=== PATIENT | female | born 1975 | race Caucasian/White ===

== ENCOUNTER 2024-03-03 08:27 | Inpatient (IN) | payer MEDICAID, SELFPAY ==
--- NOTE | 2024-03-03 08:50 | XR_ITS ---
Examination: Duplex scan of the lower extremity, unilateral left complete Date and time of exam: March 03, 2024 0928 hours INDICATIONS: Left leg swelling and pain beginning 3 weeks ago Technique: Duplex scan of the extremity veins using B-mode/grayscale imaging and Doppler spectral analysis and color flow Attention is directed to internal echogenicity, compression and augmentation involving these veins, color flow assessment, spectral analysis Findings: Major deep venous structures in the extremity demonstrate normal course and caliber. There is no evidence of deep vein thrombosis. Normal color flow and spectral analysis Impression: Negative for DVT..
--- NOTE | 2024-03-03 08:51 | PD.EDRME ---
Rapid Medical Screening Exam RME Arrival date/time: 03/03/24 08:27 48-year-old female with a history of hypertension, hyperlipidemia presents to the emergency room with a chief complaint of left lower extremity pain, swelling, discoloration x 3 weeks. Patient states she saw her primary care provider and was sent to the emergency room to rule out a DVT. Chief Complaint: General Adult/Misc Complain Vital signs: Vital Signs Temperature 97.6 F 03/03/24 08:56 Pulse Rate 80 03/03/24 08:56 Respiratory Rate 19 03/03/24 08:56 Blood Pressure 117/66 03/03/24 08:56 Pulse Oximetry (%) 97 03/03/24 08:56 Oxygen Delivery Method Room Air 03/03/24 08:56 Vital signs reviewed by provider: Yes
[2024-03-03 08:56] VITALS: BP 117/66; PULSE 80; RESP 19; TEMP 36.4; O2SAT 97; BMI 45.3
[2024-03-03 10:24] LABS: Basophils # (Auto) 0.1 Thou/mm3 (0.0-0.2); Basophils % (Auto) 2 % (0-2.5); Eosinophils # (Auto) 0.4 Thou/mm3 (0.0-0.5); Eosinophils % (Auto) 7 % (0-10); Hematocrit 32.8 % (36.0-46.0); Hemoglobin 10.4 g/dL (12.0-16.0); Immature Granulocytes % (Auto) 0 % (0-0); Immature Granulocytes Auto 0.02 Thou/mm3 (0.00-0.00); Lymphocytes # (Auto) 2.1 Thou/mm3 (1.0-4.8); Lymphocytes % (Auto) 31 % (10-50); Mean Corpuscular HGB Conc 31.7 g/dl (31.0-37.0); Mean Corpuscular Hemoglobin 26.5 pg (25.0-35.0); Mean Corpuscular Volume 84 fL (80-100); Monocytes # (Auto) 0.6 Thou/mm3 (0.0-0.8); Monocytes % (Auto) 9 % (0-12); Neutrophils # (Auto) 3.4 Thou/mm3 (1.8-7.7); Neutrophils % (Auto) 51 % (37-80); Nucleated Red Blood Cell % 0 /100 WBC (0); Platelet Count 282 Thou/mm3 (140-440); RDW Standard Deviation 45.5 fL (36.4-46.3); Red Blood Count 3.93 Miln/mm3 (4.00-5.20); White Blood Count 6.7 Thou/mm3 (3.6-11.0)
[2024-03-03 10:32] LABS: INR 1.1 (0.9-1.3); Partial Thromboplastin Time 29.5 Seconds (22.0-36.0); Prothrombin Time 11.6 Seconds (9.0-12.2)
[2024-03-03 10:36] LABS: Alanine Aminotransferase 11 U/L (10-49); Albumin, Serum 3.7 gm/dL (3.5-5.0); Albumin/Globulin Ratio 1.2 (1.2-2.2); Alkaline Phosphatase 83 U/L (46-116); Anion Gap 5 (7-16); Aspartate Amino Transferase 24 U/L (0-34); BUN/Creatinine Ratio 16 Ratio (12-20); Bilirubin,Total 0.5 mg/dL (0.3-1.2); Blood Urea Nitrogen 13 mg/dL (9-23); Calcium (Corrected) 9.2 mg/dL (8.5-10.1); Carbon Dioxide 30.5 mMol/L (20.0-31.0); Chloride 104 mMol/L (98-107); Creatinine (Component) 0.8 mg/dL (0.6-1.3); Estimated Creatinine Clearance 118.8 mL/min (>60); Globulin 3.2 gm/dL (2.3-3.5); Glucose 88 mg/dL (74-106); Osmolality,Calculated 276 (275-295); Potassium 4.4 mMol/L (3.4-5.1); Sodium 139 mMol/L (136-145); Total Protein 6.9 gm/dL (5.7-8.2); eGFR > 60 See Note
[2024-03-03 10:47] LABS: D-Dimer 515 ng/mL (<600)
[2024-03-03 11:19] VITALS: BP 134/86; PULSE 75; RESP 19; TEMP 36.8; O2SAT 100
--- NOTE | 2024-03-03 11:59 | EDNOTE_ITS ---
ED General RME/HPI General Chief complaint: General Adult/Misc Complain Stated complaint: LEFT LOWER LEG PAIN/SWELLING/REDNESS Arrival date/time: 03/03/24 08:27 RME / HPI RME / HPI narrative: 03/03/24 08:27 48-year-old female with a history of hypertension, hyperlipidemia presents to the emergency room with a chief complaint of left lower extremity pain, swelling, discoloration x 3 weeks. Patient states she saw her primary care provider and was sent to the emergency room to rule out a DVT. DR. GRISEL MUSTAFA ED EVALUATION 48 year old female with history of hypertension, fatty liver presents to the ED for evaluation of left lower extremity redness, swelling, and pain beginning 3 weeks ago and gradually worsening. States she has consulted her PCP who prescribed patient Clindamycin 2 weeks ago which she has taken without improvement. Followed up with PCP today and advised to come in today for evaluation of DVT. Additionally reports in the last week has had intermittent chest heaviness and my heart is fluttering . Denies any fevers, chills, cough, or shortness of breath. Related Data Home Medications ?Medication ?Instructions ?Recorded ?Confirmed buspirone 5 mg tablet 7.5 mg PO BID 06/04/23 06/04/23 omeprazole 20 mg capsule,delayed 20 mg PO BID 06/04/23 06/04/23 release semaglutide 0.25 mg or 0.5 mg (2 0.5 mg subcut QWEEK 06/04/23 06/04/23 mg/3 mL) subcutaneous pen injector (Ozempic) telmisartan 80 mg tablet 80 mg PO QDAY 06/04/23 06/04/23 vitamin B12 0.5 mg-folic acid 1 mg 1 tab PO QDAY 06/04/23 06/04/23 tablet Previous Rx's ?Medication ?Instructions ?Recorded docusate sodium 100 mg capsule 100 mg PO BID #20 caps 06/05/23 (Colace) hydrocodone 5 mg-acetaminophen 325 1 tab PO Q8H PRN pain (scale score 06/05/23 mg tablet 7-10) #10 tabs ibuprofen 600 mg tablet 600 mg PO Q8H PRN pain (scale 06/05/23 score 4-6) #15 tabs Allergies Allergy/AdvReac Type Severity Reaction Status Date / Time No Known Allergies Allergy Verified 06/05/23 09:47 Review of Systems Review of Systems Narrative Review of Systems: GEN: No fever, no chills, no weight loss EYES: No discharge, no visual changes, no pain HEENT: No ear pain, no congestion, no sore throat PULM: No shortness of breath, no cough, no congestion CV: No chest pain, no dyspnea on exertion, no palpitations GI: No nausea, no vomiting, no diarrhea, no pain, no constipation : No frequency, no urgency and no dysuria MUSC/SKEL: +LLE redness/swelling/pain, no back pain SKIN: No rash PSYCH: No hallucinations, no depression HEME/LYMPH: No easy bleeding or bruising tendencies NEURO: No weakness, no headache Past Medical History Past Medical History CARDIAC: Positive Hypercholesterolemia, Edema and Hypertension RESPIRATORY: Positive Sleep Apnea GASTROINTESTINAL: Positive Gastrointestinal Disorders (elevated liver enzymes), Hepatitis (C) and Obesity GENITOURINARY: Positive Genitourinary Disorders and Renal Disease MUSCULOSKELETAL: Positive Musculoskeletal Disorders ENDOCRINE: Positive Endocrine Disorders and Diabetes Mellitus Type 2 PSYCHO/SOCIAL: Positive Bipolar Disorder and Depression OTHER HISTORY: Positive Hospitalization (kidney failure 2 yrs ago), Shingles and Chicken Pox Family History FAMILY HISTORY: Positive Family Cardiac Disorders Surgical History SURGICAL: Positive Abdominal Surgery, Gastric Bypass Surgery and Tubal Ligation Social History SMOKING STATUS: Never smoker ED Exam Narrative Physical exam: GENERAL APPEARANCE: Well hydrated, well nourished, in no acute distress. VITALS: All vitals were reviewed and the pulse ox is 100% on room air which is normal according to my interpretation. HEENT: Normocephalic, atramatic, EOMI, EACs are patent. There is no bulge or retraction. Throat without erythema or exudate. Moist oromucosa. No jaundice NECK: Supple, no JVD or bruits. CARDIOVASCULAR: Heart regular without S3-S4 or murmur. No rubs or gallops. LUNGS/CHEST: Clear to auscultation bilaterally. No rales, rhonchi, or wheezing. Normal inspection. ABDOMEN: Soft, nontender, with normal bowel sounds. No pulsatile masses. No rebound, rigidity, or guarding. No incarcerated hernia. Normal inspection and palpation. EXTREMITIES: There is a band of cellulitis measuring about 20cm in width to the left lower hald of the left leg that is red hot and swollen. No clubbing or cyanosis. Intact CSM SKIN: Warm and dry without rashes. MUSCULOSKELETAL: Normal inspection. No gross deformity, full ROM all extremities NEURO: Alert and oriented x3. Cranial nerves II through XII grossly intact. There are no other motor or sensory deficits noted. PSYCHIATRIC: Normal mood and affect. No psychosis. Course Quality Measures none Orders Category Date Time Status EKG (ED ONLY) *Do not use* NOW Care 03/03/24 12:10 Completed EKG (ED Only) Stat Exams 03/03/24 12:10 Ordered US venous doppler LE LT Stat Exams 03/03/24 08:50 Completed CBC Stat Lab 03/03/24 09:48 Completed CMP [Comprehensive Metabolic Panel] Stat Lab 03/03/24 09:48 Completed D-Dimer Stat Lab 03/03/24 09:48 Completed PT [Prothrombin Time with INR] Stat Lab 03/03/24 09:48 Completed PTT [Partial Thromboplastin Time] Stat Lab 03/03/24 09:48 Completed Vancomycin Inj 1,000 mg Med 03/03/24 12:10 Active Sodium Chloride 0.9% 250 ml [Ns] 250 ml IV X1 Vital Signs Vital signs: Vital Signs Temperature 97.6 F 03/03/24 08:56 Pulse Rate 80 03/03/24 08:56 Respiratory Rate 19 03/03/24 08:56 Blood Pressure 117/66 03/03/24 08:56 Pulse Oximetry (%) 97 03/03/24 08:56 Oxygen Delivery Method Room Air 03/03/24 08:56 [facility] Patient data External records reviewed:: [facility] previous records (I reviewed ED visit on 06/05/2023) Clinical information provided by:: patient Social determinants that could affect healthcare access:: none Patient has the following chronic illnesses:: Hypertension How is presenting disease/condition affected by chronic disease/condition?: u neffected by Evaluation data The following diagnostics were reviewed and interpreted by me:: lab results and radiology exam(s) Lab and/or radiology exams considered but not ordered:: None Interpretation Summary: Ordering Physician: Rubio Tellez Date of Service: 03/03/24 Procedure(s): US venous doppler LE LT Accession Number(s): [id number] cc: Rubio Tellez; Wander Vyas MD; Vince Jensen MD~ Examination: Duplex scan of the lower extremity, unilateral left complete Date and time of exam: March 03, 2024 0928 hours INDICATIONS: Left leg swelling and pain beginning 3 weeks ago Technique: Duplex scan of the extremity veins using B-mode/grayscale imaging and Doppler spectral analysis and color flow Attention is directed to internal echogenicity, compression and augmentation involving these veins, color flow assessment, spectral analysis Findings: Major deep venous structures in the extremity demonstrate normal course and caliber. There is no evidence of deep vein thrombosis. Normal color flow and spectral analysis Impression: Negative for DVT.. Dictated By: Vince Jensen MD Signed By: <Electronically signed by Vince Jensen MD in OV> 03/03/24 0952 Medications Medications considered but not ordered:: None Medication administrations:: Medication Administration History Vancomycin HCl 1,000 mg/ (Sodium Chloride) 250 mls @ 150 mls/hr IV X1 ONE Stop: 03/03/24 13:49 See above Consultations Consultation(s) initiated? (list below): Yes Consultation #1 (Physician, Specialty, Details): I spoke with hospitalist Dr. Camacho as noted above. Diagnosis Differential Diagnosis ED Complaint MDM: Cellulitis, sepsis, DVT Most likely diagnosis given after review of the tests above:: Cellulitis Admission Indicated Admission indicated?: indicated Explain why admission is indicated or not indicated:: Failed outpatient treatment. Admission Request Was there a request for admission?: Yes Admission Attestation Admission request attestation: Discussed case with [] from Hospitalist service regarding admission. Discussed patients ED course, exam findings, labs, and radiology results. The Hospitalist [agrees,declines] to accept the patient for admission. Disposition Plan Disposition Plan: Admit Medical Decision Making MDM Narrative MDM Narrative: CBC unremarkable. CMP negative. D-dimer negative. PT and PTT are negative. Ultrasound Doppler of the left extremity lower was read by Dr. Vinec Jensen is negative for DVT. According to the patient she has been having this cellulitis for a month and she has been taking clindamycin for the last 10 days without any improvement. In fact the cellulitis is getting worse. Prompted her to come in. On exam she does have red hot swollen cellulitis in the left lower extremity. No abscess. In the emergency department I am giving the patient 1 g of vancomycin IV. Twelve-lead EKG at 12:54 PM interpreted by me: Normal sinus rhythm. Heart rate of 70. Normal axis. No ST elevation or depression. No PVC. No STEMI. Regular rate and rhythm. Old Q waves noted in leads III and V1 and V2. 12:40 PM, I spoke to discussed with Dr. Camacho, hospitalist on-call. He agreed to admit the patient for further evaluation and treatment. Thank very much Differential Diagnosis Differential Diagnosis: Cellulitis, sepsis, DVT Lab Data 03/03/24 09:48 03/03/24 09:48 Labs: Lab Results 03/03/24 Range/Units 09:48 WBC 6.7 (3.6-11.0) Thou/mm3 RBC 3.93 L (4.00-5.20) Miln/mm3 Hgb 10.4 L (12.0-16.0) g/dL Hct 32.8 L (36.0-46.0) % MCV 84 (80-100) fL MCH 26.5 (25.0-35.0) pg MCHC 31.7 (31.0-37.0) g/dl RDW Std Deviation 45.5 (36.4-46.3) fL Plt Count 282 (140-440) Thou/mm3 Neut % (Auto) 51 (37-80) % Lymph % (Auto) 31 (10-50) % [place] % (Auto) 9 (0-12) % Eos % (Auto) 7 (0-10) % Baso % (Auto) 2 (0-2.5) % Neut # (Auto) 3.4 (1.8-7.7) Thou/mm3 Lymph # (Auto) 2.1 (1.0-4.8) Thou/mm3 [place] # (Auto) 0.6 (0.0-0.8) Thou/mm3 Eos # (Auto) 0.4 (0.0-0.5) Thou/mm3 Baso # (Auto) 0.1 (0.0-0.2) Thou/mm3 Immature Gran # (Auto) 0.02 H (0.00-0.00) Thou/mm3 Absolute Nucleated RBC 0.00 (0.00-0.00) Thou/mm3 Immature Gran % 0 (0-0) % Nucleated RBC % 0 (0) /100 WBC PT 11.6 (9.0-12.2) Seconds INR 1.1 (0.9-1.3) APTT 29.5 (22.0-36.0) Seconds D-Dimer 515 (<600) ng/mL Sodium 139 (136-145) mMol/L Potassium 4.4 (3.4-5.1) mMol/L Chloride 104 (98-107) mMol/L Carbon Dioxide 30.5 (20.0-31.0) mMol/L Anion Gap 5 L (7-16) BUN 13 (9-23) mg/dL Creatinine 0.8 (0.6-1.3) mg/dL Estim Creat Clear Calc 118.8 (>60) mL/min eGFR > 60 (60 - ) See Note BUN/Creatinine Ratio 16 (12-20) Ratio Glucose 88 (74-106) mg/dL Calculated Osmolality 276 (275-295) Calcium 9.0 (8.3-10.6) mg/dL Corrected Calcium 9.2 (8.5-10.1) mg/dL Total Bilirubin 0.5 (0.3-1.2) mg/dL AST 24 (0-34) U/L ALT 11 (10-49) U/L Alkaline Phosphatase 83 (46-116) U/L Total Protein 6.9 (5.7-8.2) gm/dL Albumin 3.7 (3.5-5.0) gm/dL Globulin 3.2 (2.3-3.5) gm/dL Albumin/Globulin Ratio 1.2 (1.2-2.2) Discharge Plan Plan Patient Disposition: Admit Acute Care w/in Hospital Disposition Comment: Stable for admit Prescriptions/Referrals Prescriptions/Med Rec: No Action telmisartan 80 mg Tablet 80 mg PO QDAY omeprazole 20 mg Capsule,Delayed Release(Dr/Ec) 20 mg PO BID vitamin B52-ruuru acid 0.5-1 mg Tablet 1 tab PO QDAY Ozempic 0.25 mg or 0.5 mg (2 mg/3 mL) Pen Injector 0.5 mg SUBCUT QWEEK buspirone 5 mg Tablet 7.5 mg PO BID docusate sodium [Colace] 100 mg capsule 100 mg PO BID Qty: 20 0RF ibuprofen 600 mg tablet 600 mg PO Q8H PRN (Reason: pain (scale score 4-6)) Qty: 15 0RF hydrocodone-acetaminophen 5-325 mg tablet 1 tab PO Q8H MDD 3 PRN (Reason: pain (scale score 7-10)) Qty: 10 0RF Referrals: Wander Vyas MD [Primary Care Provider] - In 1 week Problem List Clinical Impression: Cellulitis Patient/Caregiver Discharge Instructions Print Language: Guamanian Stand Alone Forms: Maria D Award Info., Patient Portal Info Letter
[2024-03-03] MEDS: Vancomycin Inj 1,000 MG in SODIUM CHLORIDE 0.9% 250 ML 250 ML 150 MG IV (13:31)
[2024-03-03 13:46] VITALS: BP 139/83; PULSE 68; RESP 18; TEMP 36.9; O2SAT 98
--- NOTE | 2024-03-03 15:31 | ESHP_ITS ---
<Statement entered by Lala Medina MD - 03/03/24 19:13> In Brief: 48-year-old female admitted for cellulitis to outpatient clindamycin therapy, IV antibiotics will follow cultures wound care in place. Pending troponin. If elevated will consider echo. He might need outpatient cardiology follow-up. her chest pain is non specific . I discussed with and supervised my co-resident involved in the care of this patient. I agree with the assessment and plan as documented above. Lala Medina,PGY-3 Disclaimer: Despite multiple revisions, due to the dictation software being used, the document below may not be free of grammatical errors including phonetic/typographic errors. However, this does not deter from our commitment to providing health care in the patient's best interest in mind. Documentation for date of: 03/03/24 HPI History of Present Illness History of present illness: This is a pleasant 48-year-old female PMHx of HTN, HLD, obesity, METH user, presenting to ED with bilateral lower extremity pain. She had previously seen her PCP who prescribed CLINDAMYCIN for bilateral cellulitis. Patient was on ANTIBIOTICS for a week, without improvement in symptoms. Also admits to a single episode of chest pain and pressure that occurred once this week, not related to exertion, lasting about 30 minutes, resolved spontaneously. Physical exam shows bilateral lower extremity tenderness to palpation, warmth, erythema over distal foot. Denies headaches, fever, fall, trauma or injury, fever, chills, active chest pain, shortness of breath, cough, GI symptoms including pain or N/V/D/C, urinary symptoms, abnormal bleed, active drug use, alcohol use, or tobacco use. Patient admitted for bilateral lower extremity cellulitis. ED COURSE: Vital stable with T97.6, BP 117/66, HR 80, RR 19, satting 97% on room air. Hgb 10.4 (baseline around 12), no leukocytosis, PLT 282. CMP without significant abnormalities. U tox positive for METHAMPHETAMINE. Venous Doppler of bilateral extremity negative for DVT. PMHx: HTN, HLD, obesity, METH use. PSHx: Gastric sleeve bypass. MEDS: Pending med rec.per chart review, patient on TELMISARTAN 40 mg, WEGOVY 2.5 mg, MEDROXYPROGESTERONE 10 mg daily, HYDROCHLOROTHIAZIDE 25 mg daily. ALLERGIES: No known allergies. SH: Denies drug, alcohol or tobacco use. Exam Vital Signs Temp Pulse Resp BP Pulse Ox O2 Del Method 98.5 F 68 18 139/83 H 98 Room Air 03/03/24 13:46 03/03/24 13:46 03/03/24 13:46 03/03/24 13:46 03/03/24 13:46 03/03/24 13:46 Narrative Exam GENERAL * Normal-appearing middle-aged woman, obese, no apparent distress HEENT * NCAT.?KASSI. Oral mucosa is moist. Patent Nares NECK * Supple, nontender, no thyromegaly, no meningismus, no JVD, no step offs CHEST * RRR, no m/g/r * CTAB, no w/r/r. Symmetrical chest rise. No intercostal subcostal retraction * Atraumatic, nontender, no crepitus, symmetrical expansion. ABDOMEN * Soft, flat, nontender. No guarding/rebound tenderness/masses. * Bowel sounds presents EXTREMITIES * Bilateral lower extremity with erythema and tenderness over anterior distal artis. * No edema/cyanosis.? SKIN * Warm and dry, no jaundice/rashes. NEUROMUSCULAR * No lumbar or midline, no CVA, no paraspinal muscle spasm or tenderness. * Moves all 4 extremities well, with full ROM and good CSM. * CONNELL x4, CN II-XII grossly intact. * No focal neurologic deficits. PSYCHIATRY * Normal mood and affect, cooperative, no SI or HI or hallucinations. Results: Labs 03/04/24 05:56 03/04/24 05:56 Labs: Short CBC 03/03/24 Range/Units 09:48 WBC 6.7 (3.6-11.0) Thou/mm3 Hgb 10.4 L (12.0-16.0) g/dL Hct 32.8 L (36.0-46.0) % Plt Count 282 (140-440) Thou/mm3 BMP 03/03/24 09:48 Sodium 139 Potassium 4.4 Chloride 104 Carbon Dioxide 30.5 BUN 13 Creatinine 0.8 Glucose 88 Calcium 9.0 Liver Function 03/03/24 Range/Units 09:48 Total Bilirubin 0.5 (0.3-1.2) mg/dL AST 24 (0-34) U/L ALT 11 (10-49) U/L Alkaline Phosphatase 83 (46-116) U/L Albumin 3.7 (3.5-5.0) gm/dL Quality Measures Quality Measures none Medications Home Medications and Allergies Home Medications ?Medication ?Instructions ?Recorded ?Confirmed ?Type buspirone 5 mg tablet 7.5 mg PO BID 06/04/23 03/04/24 History omeprazole 20 mg capsule,delayed 20 mg PO BID 06/04/23 06/04/23 History release semaglutide 0.25 mg or 0.5 mg (2 0.5 mg subcut QWEEK 06/04/23 03/04/24 History mg/3 mL) subcutaneous pen injector (ClassifEye) telmisartan 80 mg tablet 40 mg PO QDAY 06/04/23 03/04/24 History vitamin B12 0.5 mg-folic acid 1 mg 1 tab PO QDAY 06/04/23 03/04/24 History tablet Allergies Allergy/AdvReac Type Severity Reaction Status Date / Time No Known Allergies Allergy Verified 06/05/23 09:47 Visit Medications Acetaminophen (Acetaminophen 325 Mg Tablet) 650 mg PO Q6H PRN PRN Reason: PAIN SCALE 1-3 (mild Stop: 04/02/24 15:01 Acetaminophen (Acetaminophen 325 Mg Tablet) 650 mg PO Q6H PRN PRN Reason: Fever >100 Stop: 04/02/24 15:01 Hydrocodone Bitart/Acetaminophen (Hydrocodone/Apap 10/325 Tab) 1 tab PO Q4HR PRN PRN Reason: PAIN SCALE 7-10 (Severe Stop: 03/08/24 15:01 Ondansetron HCl (Ondansetron Inj 2 Mg/Ml Inj 2 Ml) 4 mg IV Q6H PRN; Protocol PRN Reason: NAUSEA OR VOMITING Stop: 04/02/24 15:01 Oxycodone/Acetaminophen (Oxycodone/Apap 5/325 Tablet) 1 tab PO Q6H PRN PRN Reason: PAIN SCALE 4-6 (Moderate Stop: 03/08/24 15:01 Discontinued Medications Vancomycin HCl 1,000 mg/ (Sodium Chloride) 250 mls @ 150 mls/hr IV X1 ONE Stop: 03/03/24 13:49 Last Admin: 03/03/24 13:31 Dose: 150 mls/hr Assessment & Plan Plan In summary: 48-year-old female PMHx of HTN, HLD, obesity, METH use, admitted for bilateral lower extremity cellulitis after failing outpatient CLINDAMYCIN. Patient started on IV ANTIBIOTICS. Pending blood culture. In addition, patient admitted to not recurrent of chest pain and pressure lasting about 30 minutes. EKG was normal. Will follow-up with troponin. Bilateral lower extremity cellulitis Morbid obesity Hx of gastric sleeve bypass Presenting with worsening cellulitis lower extremity after failing 1 week of CLINDAMYCIN outpatient. No history of diabetes. Limited BMI and active drug use, high risk for infection. She had gastric sleeve bypass done recently, lost about 100 lbs, now on WEGOVY. Currently afebrile, no leukocytosis. No signs of compartment syndrome. No ulcers or skin tears bilaterally. Pulses intact bilaterally. No history of diabetes. GLUCOSE 88, A1c 4.7 from 08/2023. ? Started VANCOMYCIN pharmacy dose (03/03 to [present]) ? Started CEFAZOLIN 2 g Q8H (03/03 to [present]) ? Pain control ? Wound care Chest pain, nonspecified Reports a single nonrecurring episode of chest pressure lasting about 30 minutes. EKG in ED, no acute ST changes. ? Pending troponin HTN, HLD History of above. Pending med rec's. Patient states she is on HYDROCHLOROTHIAZIDE and TELMISARTAN. Currently normotensive. ? Consider restarting ANTIHYPERTENSIVE as indicated. ? Daily vitals Active METH use Admits to history of METH use, stated she is not currently using METH. U tox positive for METH AMPHETAMINE. ? Advised against METH use Health maintenance Diet: Regular diet GI prophylaxis: Not indicated DVT prophylaxis: HEPARIN subcu Antibiotics: CEFAZOLIN, VANCOMYCIN CODE STATUS: Full code Disposition: Pending improvement in cellulitis. Patient case was discussed with attending, Gabe Camacho MD and senior residents Dr. Medina and Dr. Titus. Jaye Messina DO PGYI Attending Provider Attestation/Addendum I reviewed labs, imaging, EKG, home medications and prior available records. Face to face evaluation was performed by me. I have personally examined the patient and discussed assessment and plan with the IM team. I reviewed the resident note and agree with the plan with exceptions as below. Left lower extremity cellulitis History of methamphetamine use Morbid obesity BMI 45.4 Fatty liver disease Failed outpatient treatment. Started vancomycin/cefazolin Trend WBC Elevation of left lower extremity Avoid methamphetamine Weight management
[2024-03-03] MEDS: ceFAZolin/D5W 2 GM IV 2 GM/100 ML BAG IV ×2 (16:16→21:07)
[2024-03-03 16:27] LABS: Troponin I < 0.020 ng/mL (0.0-0.045)
[2024-03-03 17:00] VITALS: BP 156/76; PULSE 72; RESP 18; TEMP 36.9; O2SAT 98
[2024-03-03 17:18] VITALS: BMI 45.3
[2024-03-03] MEDS: HYDROcodone/APAP 10/325 TAB PO (19:33)
[2024-03-03 20:00] VITALS: BP 137/85; PULSE 78; RESP 18; TEMP 36.3; O2SAT 99
[2024-03-03] MEDS: HEPARIN SOD INJ 5000 UNIT/ML VIAL SC (21:06)
[2024-03-03] MEDS: VANCOMYCIN/NS 1 GM IVPB 200 ML IV (21:07)
[2024-03-04] VITALS (8 sets, daily range): BP systolic 111–136; BP diastolic 55–78; PULSE 76–88; RESP 17–20; TEMP 36.2–36.6; O2SAT 94–100
[2024-03-04] MEDS: VANCOMYCIN/NS 1 GM IVPB 200 ML IV ×3 (05:05→22:28)
[2024-03-04] MEDS: HEPARIN SOD INJ 5000 UNIT/ML VIAL SC ×3 (05:08→21:10)
[2024-03-04] MEDS: ceFAZolin/D5W 2 GM IV 2 GM/100 ML BAG IV ×3 (05:11→21:09)
[2024-03-04 06:34] LABS: Basophils # (Auto) 0.1 Thou/mm3 (0.0-0.2); Basophils % (Auto) 1 % (0-2.5); Eosinophils # (Auto) 0.3 Thou/mm3 (0.0-0.5); Eosinophils % (Auto) 6 % (0-10); Hematocrit 31.6 % (36.0-46.0); Hemoglobin 9.9 g/dL (12.0-16.0); Immature Granulocytes % (Auto) 0 % (0-0); Immature Granulocytes Auto 0.02 Thou/mm3 (0.00-0.00); Lymphocytes # (Auto) 2.6 Thou/mm3 (1.0-4.8); Lymphocytes % (Auto) 43 % (10-50); Mean Corpuscular HGB Conc 31.3 g/dl (31.0-37.0); Mean Corpuscular Hemoglobin 26.3 pg (25.0-35.0); Mean Corpuscular Volume 84 fL (80-100); Monocytes # (Auto) 0.5 Thou/mm3 (0.0-0.8); Monocytes % (Auto) 8 % (0-12); Neutrophils # (Auto) 2.5 Thou/mm3 (1.8-7.7); Neutrophils % (Auto) 42 % (37-80); Nucleated Red Blood Cell % 0 /100 WBC (0); Platelet Count 262 Thou/mm3 (140-440); Red Blood Count 3.76 Miln/mm3 (4.00-5.20); White Blood Count 5.9 Thou/mm3 (3.6-11.0)
[2024-03-04] MEDS: ACETAMINOPHEN 325 MG TABLET 650 MG PO ×3 (07:10→21:47)
[2024-03-04 07:51] LABS: Alanine Aminotransferase 13 U/L (10-49); Albumin, Serum 3.6 gm/dL (3.5-5.0); Albumin/Globulin Ratio 1.3 (1.2-2.2); Alkaline Phosphatase 76 U/L (46-116); Anion Gap 7 (7-16); Aspartate Amino Transferase < 10 U/L (0-34); BUN/Creatinine Ratio 16 Ratio (12-20); Bilirubin,Total 0.4 mg/dL (0.3-1.2); Blood Urea Nitrogen 13 mg/dL (9-23); Calcium 8.7 mg/dL (8.3-10.6); Carbon Dioxide 29.5 mMol/L (20.0-31.0); Chloride 103 mMol/L (98-107); Creatinine (Component) 0.8 mg/dL (0.6-1.3); Estimated Creatinine Clearance 118.8 mL/min (>60); Globulin 2.8 gm/dL (2.3-3.5); Glucose 81 mg/dL (74-106); Osmolality,Calculated 276 (275-295); Phosphorous 3.8 mg/dL (2.4-5.1); Sodium 139 mMol/L (136-145); Total Protein 6.4 gm/dL (5.7-8.2); eGFR > 60 See Note
[2024-03-04] MEDS: FERROUS SULF 325 MG TABLET PO (09:45)
[2024-03-04] MEDS: ONDANSETRON ODT 4 MG TABRAP PO (09:47)
--- NOTE | 2024-03-04 10:48 | ESPR_ITS ---
<Statement entered by Lala Medina MD - 03/04/24 17:15> Patient was examined bedside this morning, right leg cellulitis more improved. Will continue IV antibiotic. Pending echo I discussed with and supervised my co-resident involved in the care of this patient. I agree with the assessment and plan as documented above. Lala Medina,PGY-3 Disclaimer: Despite multiple revisions, due to the dictation software being used, the document below may not be free of grammatical errors including phonetic/typographic errors. However, this does not deter from our commitment to providing health care in the patient's best interest in mind. Documentation for date of: 03/04/24 Subjective Subjective Interval history: No overnight events. Doing well today, pain controlled. Feels nauseous today, we started ZOFRAN. Denies fever, chills, headaches, chest pain, sob, cough, GI or urinary symptoms. Exam Vital Signs Temp Pulse Resp BP Pulse Ox O2 Del Method 97.3 F 78 18 136/55 H 95 Room Air 03/04/24 08:00 03/04/24 08:00 03/04/24 08:00 03/04/24 08:00 03/04/24 08:00 03/04/24 08:00 Narrative Exam GENERAL * Normal-appearing middle-aged woman, obese, no apparent distress HEENT * NCAT.?KASSI. Oral mucosa is moist. Patent Nares NECK * Supple, nontender, no thyromegaly, no meningismus, no JVD, no step offs CHEST * RRR, no m/g/r * CTAB, no w/r/r. Symmetrical chest rise. No intercostal subcostal retraction * Atraumatic, nontender, no crepitus, symmetrical expansion. ABDOMEN * Soft, flat, nontender. No guarding/rebound tenderness/masses. * Bowel sounds presents EXTREMITIES * Imporving bilateral lower extremity with erythema and tenderness over anterior distal artis. * No edema/cyanosis.? SKIN * Warm and dry, no jaundice/rashes. NEUROMUSCULAR * No lumbar or midline, no CVA, no paraspinal muscle spasm or tenderness. * Moves all 4 extremities well, with full ROM and good CSM. * CONNELL x4, CN II-XII grossly intact. * No focal neurologic deficits. PSYCHIATRY * Normal mood and affect, cooperative, no SI or HI or hallucinations. Objective Labs 03/04/24 05:56 03/04/24 05:56 Labs: Laboratory Results - last 24 hr 03/03/24 03/04/24 15:45 05:56 WBC 5.9 RBC 3.76 L Hgb 9.9 L Hct 31.6 L MCV 84 MCH 26.3 MCHC 31.3 RDW Std Deviation 46.0 Plt Count 262 Neut % (Auto) 42 Lymph % (Auto) 43 [place] % (Auto) 8 Eos % (Auto) 6 Baso % (Auto) 1 Neut # (Auto) 2.5 Lymph # (Auto) 2.6 [place] # (Auto) 0.5 Eos # (Auto) 0.3 Baso # (Auto) 0.1 Immature Gran # (Auto) 0.02 H Absolute Nucleated RBC 0.00 Immature Gran % 0 Nucleated RBC % 0 Sodium 139 Potassium 4.0 Chloride 103 Carbon Dioxide 29.5 Anion Gap 7 BUN 13 Creatinine 0.8 Estim Creat Clear Calc 118.8 eGFR > 60 BUN/Creatinine Ratio 16 Glucose 81 Calculated Osmolality 276 Calcium 8.7 Corrected Calcium 9.0 Phosphorus 3.8 Magnesium 2.0 Total Bilirubin 0.4 AST < 10 ALT 13 Alkaline Phosphatase 76 Troponin I < 0.020 Total Protein 6.4 Albumin 3.6 Globulin 2.8 Albumin/Globulin Ratio 1.3 Quality Measures Quality Measures none Assessment & Plan Assessment Current Active Medications: Generic Name Dose Route Start Last Admin Trade Name Freq PRN Reason Stop Dose Admin Acetaminophen 650 mg 03/03/24 15:02 03/04/24 07:10 Acetaminophen 325 Mg Tablet PO 04/02/24 15:01 650 mg Q6H PRN Administration PAIN SCALE 1-3 (mild Acetaminophen 650 mg 03/03/24 15:02 Acetaminophen 325 Mg Tablet PO 04/02/24 15:01 Q6H PRN Fever >100 Hydrocodone Bitart/Acetaminophen 1 tab 03/03/24 15:02 03/03/24 19:33 Hydrocodone/Apap 10/325 Tab PO 03/08/24 15:01 1 tab Q4HR PRN Administration PAIN SCALE 7-10 (Severe Ferrous Sulfate 325 mg 03/04/24 09:00 03/04/24 09:45 Ferrous Sulf 325 Mg Tablet PO 04/03/24 08:59 325 mg QOD PHILIPP Administration Heparin Sodium (Porcine) 5,000 unit 03/03/24 22:00 03/04/24 05:08 Heparin Sod Inj 5000 Unit/Ml Vial SC 03/17/24 21:59 5,000 unit Q8HR PHILIPP Administration Cefazolin Sodium 2 gm in 100 mls @ 100 mls/hr 03/03/24 15:47 03/04/24 05:11 Ancef 2gm Ivpb IV 03/10/24 15:46 100 mls/hr Q8HR PHILIPP Administration Vancomycin/Sodium Chloride 200 mls @ 120 mls/hr 03/03/24 22:00 03/04/24 05:05 Vancomycin/Ns 1 Gm Ivpb IV 03/10/24 21:59 120 mls/hr TID PHILIPP Administration Ondansetron HCl 4 mg 03/04/24 08:41 Ondansetron Odt 4 Mg Tabrap PO 04/03/24 08:40 Q6HR PRN NAUSEA OR VOMITING Protocol Oxycodone/Acetaminophen 1 tab 03/03/24 15:02 Oxycodone/Apap 5/325 Tablet PO 03/08/24 15:01 Q6H PRN PAIN SCALE 4-6 (Moderate Pharmacy Consult 1 each 03/04/24 09:00 Vancomycin Pharmacy To Dose 1 Each Each IV 04/03/24 08:59 QDAY PRN CONSULT Plan In summary: 48-year-old female PMHx of HTN, HLD, obesity, METH use, admitted for bilateral lower extremity cellulitis after failing outpatient CLINDAMYCIN. Continued on IV ANTIBIOTICS. Pending blood culture. In addition, patient admitted to not recurrent of chest pain and pressure lasting about 30 minutes. EKG and trops negative. Pending ECHO. Bilateral lower extremity cellulitis Morbid obesity Hx of gastric sleeve bypass Presenting with worsening cellulitis lower extremity after failing 1 week of CLINDAMYCIN outpatient. No history of diabetes. Limited BMI and active drug use, high risk for infection. She had gastric sleeve bypass done recently, lost about 100 lbs, now on WEGOVY. Currently afebrile, no leukocytosis. No signs of compartment syndrome. No ulcers or skin tears bilaterally. Pulses intact bilaterally. No history of diabetes. GLUCOSE 88, A1c 4.7 from 08/2023. ? Started VANCOMYCIN pharmacy dose (03/03 to [present]) ? Started CEFAZOLIN 2 g Q8H (03/03 to [present]) ? Pain control ? Wound care Chest pain, nonspecified Reports a single nonrecurring episode of chest pressure lasting about 30 minutes. EKG in ED, no acute ST changes. Troponin normal. ? Pending ECHO. HTN, HLD History of above. Pending med rec's. Patient states she is on HYDROCHLOROTHIAZIDE and TELMISARTAN. Currently normotensive. ? Consider restarting ANTIHYPERTENSIVE as indicated. ? Daily vitals Active METH use Admits to history of METH use, stated she is not currently using METH. U tox positive for METH AMPHETAMINE. ? Advised against METH use Health maintenance Diet: Regular diet GI prophylaxis: Not indicated DVT prophylaxis: HEPARIN subcu Antibiotics: CEFAZOLIN, VANCOMYCIN CODE STATUS: Full code Disposition: Pending improvement in cellulitis. Patient case was discussed with attending, Gabe Camacho MD and senior residents Dr. Medina and Dr. Titus. Jaye Messina DO PGYI Attending Provider Attestation/Addendum I reviewed labs, imaging, EKG, home medications and prior available records. Face to face evaluation was performed by me. I have personally examined the patient and discussed assessment and plan with the IM team. I reviewed the resident note and agree with the plan with exceptions as below. Left lower extremity cellulitis History of methamphetamine use Morbid obesity BMI 45.4 Fatty liver disease Failed outpatient treatment. Started vancomycin/cefazolin. Follow-up MRSA screening Trend WBC: No uptrending Elevation of left lower extremity Avoid methamphetamine Weight management
--- NOTE | 2024-03-04 12:30 | PC.NURSE ---
Wound care order completed, patient has no open wound, left lower extremity cellulites with intact skin.
--- NOTE | 2024-03-04 13:30 | ECHO_ITS ---
Transthoracic Echo Report Ht (in): 66 Wt (lb): 281 Exam Location: Portable Status: Inpatient Tool Storage Attendant: Ale Kuhn Indications: Procedure Performed: BP: 122 / 71 HR: 86 Technical Quality: Fair MEASUREMENTS (Male / Female) Normal Values 2D ECHO LV Diastolic Diameter PLAX 5.0 cm 4.2 - 5.9 / 3.9 - 5.3 cm LV Systolic Diameter PLAX 3.2 cm IVS Diastolic Thickness 0.9 cm 0.6 - 1.0 / 0.6 - 0.9 cm LVPW Diastolic Thickness 1.0 cm 0.6 - 1.0 / 0.6 - 0.9 cm LV Relative Wall Thickness 0.4 LVOT Diameter 2.0 cm LA Volume Index 19.3 cm?/m? 16 - 28 cm?/m? Ascending Aorta Diameter 2.9 cm M-MODE Aortic Root Diameter MM 2.6 cm LA Systolic Diameter MM 3.9 cm LA Ao Ratio MM 1.5 AV Cusp Separation MM 2.2 cm DOPPLER AV Peak Velocity 149.0 cm/s AV Peak Gradient 8.9 mmHg AV Mean Gradient 4.0 mmHg AV Velocity Time Integral 31.7 cm LVOT Peak Velocity 147.0 cm/s LVOT Peak Gradient 8.6 mmHg LVOT Velocity Time Integral 31.9 cm LVOT Cardiac Index 3439.2 cm?/min?m? AV Area Cont Eq vti 3.2 cm? AV Area Cont Eq pk 3.1 cm? MV Peak Velocity 93.3 cm/s MV Peak Gradient 3.5 mmHg MV Mean Velocity 55.4 cm/s MV Mean Gradient 2.0 mmHg MV Area PHT 3.7 cm? Mitral E Point Velocity 94.1 cm/s Mitral A Point Velocity 81.5 cm/s Mitral E to A Ratio 1.2 LV E' Lateral Velocity 17.2 cm/s Mitral E to LV E' Lateral Ratio 5.5 LV E' Septal Velocity 11.1 cm/s Mitral E to LV E' Septal Ratio 8.5 TR Peak Velocity 175.0 cm/s TR Peak Gradient 12.3 mmHg FINDINGS Left Ventricle Normal left ventricular size, wall thickness, systolic function with no obvious regional wall motion abnormalities. The ejection fraction is visually estimated at 60-65%. Right Ventricle The right ventricle is normal in size and systolic function. The estimated right ventricular systoli c pressure, 17mmHg. RAP 5. Left Atrium The left atrium is normal by two-dimensional, color flow and Doppler imaging with no structural abnormalities, no thrombus formation present. Right Atrium The right atrium is normal by two-dimensional imaging, color flow and Doppler imaging with no struct ural abnormalities, no thrombus formation present. Atrial Septum The interatrial septum appears normal with no evidence of a shunt. Aorta The aorta is normal by two-dimensional, color flow and Doppler interrogation. Mitral Valve The mitral valve is normal by two-dimensional, color flow and Doppler interrogation. There is trace mitral valve regurgitation. Aortic Valve The aortic valve is trileaflet and normal by two-dimensional, color flow and Doppler interrogation. There is no significant aortic valve regurgitation. Tricuspid Valve The tricuspid valve is normal by two-dimensional, color flow and Doppler interrogation. There is tra ce tricuspid valve regurgitation. Pulmonic Valve There is no significant pulmonic valve regurgitation. Vessels The pulmonary artery appears normal. The inferior vena cava pulmonary and hepatic veins dilated. Pericardium The pericardium is normal by two-dimensional imaging. There is no significant pericardial effusion. CONCLUSIONS Indication: LE edema Normal LV size and function. Estimated EF 60-65%. Normal diastolic function. Normal RV size and function Trace MR, TR. IVC dilated. Fabricio Galaviz (Electronically Signed) Final Date: 05 March 2024 18:02
[2024-03-04 14:04] LABS: Vancomycin,Trough 13.3 mcg/mL (5.0-10.0)
[2024-03-04] MEDS: ALBUTEROL/IPRATROPIUM (Duoneb) RT SOL 3 ML NEBU INH ×2 (15:43→18:46)
--- NOTE | 2024-03-04 15:53 | PC.SS ---
Patient is alert/oriented. She stsates she resides with her mother. She is independent with ADL's. Patient admitted for cellulitis. She has family transport her to all appointments. Patient [facility] at [facility] and sees Dr. Vyas and SPINDLE TESTER. Her last appt. was in December. Patient states this is the first time she's had cellulitis. Patient currently on i.v. antibiotics. D/c plan remains to return home with family. Family to transport home. Patient's mother, Sunni, is the alt medical decision maker.
[2024-03-05] VITALS (10 sets, daily range): BP systolic 103–130; BP diastolic 53–73; PULSE 78–86; RESP 14–20; TEMP 36.1–36.6; O2SAT 91–100
[2024-03-05] MEDS: ALBUTEROL/IPRATROPIUM (Duoneb) RT SOL 3 ML NEBU INH ×4 (00:57→19:29)
[2024-03-05] MEDS: ceFAZolin/D5W 2 GM IV 2 GM/100 ML BAG IV ×3 (05:17→21:47)
[2024-03-05 06:47] LABS: Basophils # (Auto) 0.1 Thou/mm3 (0.0-0.2); Basophils % (Auto) 1 % (0-2.5); Eosinophils # (Auto) 0.3 Thou/mm3 (0.0-0.5); Eosinophils % (Auto) 5 % (0-10); Hemoglobin 9.6 g/dL (12.0-16.0); Immature Granulocytes % (Auto) 0 % (0-0); Immature Granulocytes Auto 0.02 Thou/mm3 (0.00-0.00); Lymphocytes # (Auto) 2.4 Thou/mm3 (1.0-4.8); Lymphocytes % (Auto) 42 % (10-50); Mean Corpuscular Hemoglobin 26.1 pg (25.0-35.0); Mean Corpuscular Volume 84 fL (80-100); Monocytes # (Auto) 0.4 Thou/mm3 (0.0-0.8); Monocytes % (Auto) 7 % (0-12); Neutrophils # (Auto) 2.6 Thou/mm3 (1.8-7.7); Neutrophils % (Auto) 45 % (37-80); Nucleated Red Blood Cell % 0 /100 WBC (0); Platelet Count 261 Thou/mm3 (140-440); RDW Standard Deviation 46.5 fL (36.4-46.3); Red Blood Count 3.68 Miln/mm3 (4.00-5.20); White Blood Count 5.7 Thou/mm3 (3.6-11.0)
[2024-03-05] MEDS: VANCOMYCIN/NS 1 GM IVPB 200 ML IV ×2 (07:04→22:58)
[2024-03-05 07:11] LABS: Alanine Aminotransferase 9 U/L (10-49); Albumin, Serum 3.5 gm/dL (3.5-5.0); Albumin/Globulin Ratio 1.2 (1.2-2.2); Alkaline Phosphatase 74 U/L (46-116); Anion Gap 7 (7-16); Aspartate Amino Transferase 23 U/L (0-34); BUN/Creatinine Ratio 13 Ratio (12-20); Bilirubin,Total 0.3 mg/dL (0.3-1.2); Blood Urea Nitrogen 10 mg/dL (9-23); Calcium 8.9 mg/dL (8.3-10.6); Calcium (Corrected) 9.3 mg/dL (8.5-10.1); Carbon Dioxide 26.5 mMol/L (20.0-31.0); Chloride 106 mMol/L (98-107); Creatinine (Component) 0.8 mg/dL (0.6-1.3); Estimated Creatinine Clearance 118.8 mL/min (>60); Glucose 86 mg/dL (74-106); Osmolality,Calculated 275 (275-295); Phosphorous 3.9 mg/dL (2.4-5.1); Potassium 3.9 mMol/L (3.4-5.1); Sodium 139 mMol/L (136-145); Total Protein 6.5 gm/dL (5.7-8.2); eGFR > 60 See Note
--- NOTE | 2024-03-05 11:51 | PC.PT ---
Per patient and RN, patient has been ambulating around the med/surg unit and getting up to the bathroom on her own with no assistance. Will cancel PT eval secondary to patient is xI and at her PLOF.
[2024-03-05 14:48] LABS: Vancomycin,Trough 23.9 mcg/mL (5.0-10.0)
--- NOTE | 2024-03-05 14:52 | ESPR_ITS ---
Documentation for date of: 03/05/24 Subjective Subjective Interval history: No acute overnight events. Denies bilateral lower extremity pain. Tolerating oral intact with regular bowel movements. Denies fever, chills, headaches, chest pain, sob, cough, GI or urinary symptoms. Exam Vital Signs Temp Pulse Resp BP Pulse Ox O2 Del Method 97.7 F 86 20 109/73 100 Room Air 03/05/24 12:00 03/05/24 12:51 03/05/24 12:51 03/05/24 12:00 03/05/24 12:51 03/05/24 12:00 Narrative Exam GENERAL * Normal-appearing middle-aged woman, obese, no apparent distress HEENT * NCAT.?KASSI. Oral mucosa is moist. Patent Nares NECK * Supple, nontender, no thyromegaly, no meningismus, no JVD, no step offs CHEST * RRR, no m/g/r * CTAB, no w/r/r. Symmetrical chest rise. No intercostal subcostal retraction * Atraumatic, nontender, no crepitus, symmetrical expansion. ABDOMEN * Soft, flat, nontender. No guarding/rebound tenderness/masses. * Bowel sounds presents EXTREMITIES * Imporving bilateral lower extremity with erythema and tenderness over anterior distal artis. * No edema/cyanosis.? SKIN * Warm and dry, no jaundice/rashes. NEUROMUSCULAR * No lumbar or midline, no CVA, no paraspinal muscle spasm or tenderness. * Moves all 4 extremities well, with full ROM and good CSM. * CONNELL x4, CN II-XII grossly intact. * No focal neurologic deficits. PSYCHIATRY * Normal mood and affect, cooperative, no SI or HI or hallucinations. Objective Labs 03/06/24 04:39 03/06/24 04:39 Labs: Laboratory Results - last 24 hr 03/05/24 05:00 WBC 5.7 RBC 3.68 L Hgb 9.6 L Hct 31.0 L MCV 84 MCH 26.1 MCHC 31.0 RDW Std Deviation 46.5 H Plt Count 261 Neut % (Auto) 45 Lymph % (Auto) 42 [place] % (Auto) 7 Eos % (Auto) 5 Baso % (Auto) 1 Neut # (Auto) 2.6 Lymph # (Auto) 2.4 [place] # (Auto) 0.4 Eos # (Auto) 0.3 Baso # (Auto) 0.1 Immature Gran # (Auto) 0.02 H Absolute Nucleated RBC 0.00 Immature Gran % 0 Nucleated RBC % 0 Sodium 139 Potassium 3.9 Chloride 106 Carbon Dioxide 26.5 Anion Gap 7 BUN 10 Creatinine 0.8 Estim Creat Clear Calc 118.8 eGFR > 60 BUN/Creatinine Ratio 13 Glucose 86 Calculated Osmolality 275 Calcium 8.9 Corrected Calcium 9.3 Phosphorus 3.9 Magnesium 2.0 Total Bilirubin 0.3 AST 23 ALT 9 L Alkaline Phosphatase 74 Total Protein 6.5 Albumin 3.5 Globulin 3.0 Albumin/Globulin Ratio 1.2 Quality Measures Quality Measures none Assessment & Plan Assessment Current Active Medications: Generic Name Dose Route Start Last Admin Trade Name Freq PRN Reason Stop Dose Admin Acetaminophen 650 mg 03/03/24 15:02 03/04/24 21:47 Acetaminophen 325 Mg Tablet PO 04/02/24 15:01 650 mg Q6H PRN Administration PAIN SCALE 1-3 (mild Acetaminophen 650 mg 03/03/24 15:02 Acetaminophen 325 Mg Tablet PO 04/02/24 15:01 Q6H PRN Fever >100 Hydrocodone Bitart/Acetaminophen 1 tab 03/03/24 15:02 03/03/24 19:33 Hydrocodone/Apap 10/325 Tab PO 03/08/24 15:01 1 tab Q4HR PRN Administration PAIN SCALE 7-10 (Severe Albuterol/Ipratropium 3 ml 03/04/24 19:00 03/05/24 12:50 Albuterol/Ipratropium (Duoneb) Rt Nancy 3 Ml Nebu INH 04/03/24 18:59 3 ml Q6HRRT PHILIPP Administration Ferrous Sulfate 325 mg 03/04/24 09:00 03/04/24 09:45 Ferrous Sulf 325 Mg Tablet PO 04/03/24 08:59 325 mg QOD PHILIPP Administration Heparin Sodium (Porcine) 5,000 unit 03/03/24 22:00 03/05/24 14:35 Heparin Sod Inj 5000 Unit/Ml Vial SC 03/17/24 21:59 Not Given Q8HR PHILIPP Cefazolin Sodium 2 gm in 100 mls @ 100 mls/hr 03/03/24 15:47 03/05/24 14:35 Ancef 2gm Ivpb IV 03/10/24 15:46 100 mls/hr Q8HR PHILIPP Administration Vancomycin/Sodium Chloride 200 mls @ 120 mls/hr 03/04/24 15:00 03/05/24 14:29 Vancomycin/Ns 1 Gm Ivpb IV 03/11/24 14:59 Infused Q8H PHILIPP Infusion Protocol Ondansetron HCl 4 mg 03/04/24 08:41 Ondansetron Odt 4 Mg Tabrap PO 04/03/24 08:40 Q6HR PRN NAUSEA OR VOMITING Protocol Oxycodone/Acetaminophen 1 tab 03/03/24 15:02 Oxycodone/Apap 5/325 Tablet PO 03/08/24 15:01 Q6H PRN PAIN SCALE 4-6 (Moderate Pharmacy Consult 1 each 03/04/24 09:00 Vancomycin Pharmacy To Dose 1 Each Each IV 04/03/24 08:59 QDAY PRN CONSULT Plan In summary: 48-year-old female PMHx of HTN, HLD, obesity, METH use, admitted for bilateral lower extremity cellulitis after failing outpatient CLINDAMYCIN. Continued on IV ANTIBIOTICS. Pending blood culture. In addition, patient admitted to not recurrent of chest pain and pressure lasting about 30 minutes. EKG and trops negative. Pending ECHO. Bilateral lower extremity cellulitis Morbid obesity Hx of gastric sleeve bypass Presenting with worsening cellulitis lower extremity after failing 1 week of CLINDAMYCIN outpatient. No history of diabetes. Limited BMI and active drug use, high risk for infection. She had gastric sleeve bypass done recently, lost about 100 lbs, now on WEGOVY. Currently afebrile, no leukocytosis. No signs of compartment syndrome. No ulcers or skin tears bilaterally. Pulses intact bilaterally. No history of diabetes. GLUCOSE 88, A1c 4.7 from 08/2023. ? Started VANCOMYCIN pharmacy dose (03/03 to [present]) ? Started CEFAZOLIN 2 g Q8H (03/03 to [present]) ? Pain control ? Wound care Chest pain, nonspecified Reports a single nonrecurring episode of chest pressure lasting about 30 minutes. EKG in ED, no acute ST changes. Troponin normal. ? Pending ECHO. HTN, HLD History of above. Pending med rec's. Patient states she is on HYDROCHLOROTHIAZIDE and TELMISARTAN. Currently normotensive. ? Consider restarting ANTIHYPERTENSIVE as indicated. ? Daily vitals Active METH use Admits to history of METH use, stated she is not currently using METH. U tox positive for METH AMPHETAMINE. ? Advised against METH use Health maintenance Diet: Regular diet GI prophylaxis: Not indicated DVT prophylaxis: HEPARIN subcu Antibiotics: CEFAZOLIN, VANCOMYCIN CODE STATUS: Full code Disposition: Pending improvement in cellulitis, ECHO Patient case was discussed with attending, Dr. Luis Alberto Rodriguez MD and senior residents Dr. Medina and Dr. Titus. Jaye Messina, DO PGYI Senior Resident Attestation: The patient reported that her bilateral lower leg erythema has been improving. Physical examination was also significant for improvement in erythema from yesterday. Vitals were stable. Labs were at baseline. We will continue with vancomycin and Zosyn at this point. The patient is also pending TTE as initially patient complained of chest heaviness few days before presentation to ED. I discussed with and supervised the director internal communications physician involved in the care of this patient. I personally saw and examined the patient and discussed the assessment and plan with the entire medicine team, including my attending. I agree with the assessment and plan as documented above. Rogerio Titus MD PGY2 Internal Medicine Attending Provider Attestation/Addendum I have examined the patient, reviewed labs and imaging findings, discussed the case with the resident(s), and reviewed entered orders. I agree with the plan of care as outlined in this note, with these additional summaries/recommendations: Patient seen at bedside. No acute overnight events. Patient reports improvement in lower extremity pain and rash. Left lower extremity cellulitis significantly improved. We will continue IV antibiotics today and likely can de-escalate to oral antibiotics tomorrow. Blood cultures preliminarily showing no growth at 24 hours and we will wait 48-hour robina. Ultrasound negative for DVT. Patient is pending echocardiogram to rule out CHF. Continue home antihypertensives. Counseled on substance abuse. If patient continues to improve then anticipate discharge in the next 24 to 48 hours. Repeat hematology and chemistry panel in AM. Dr. Rodriguez
[2024-03-05] MEDS: ACETAMINOPHEN 325 MG TABLET 650 MG PO (16:49)
[2024-03-05] MEDS: oxyCODONE/APAP 5/325 TABLET 1 TAB PO (20:13)
--- NOTE | 2024-03-05 20:15 | PC.NURSE ---
Called Dr. Lawson regarding patient's order of NPO after midnight, per patient, no doctor has talked to her about procedure done for tomorrow that requires her to be NPO after midnight, per Dr. Lawson ok to DC order for NPO after midnight.
[2024-03-06] VITALS (7 sets, daily range): BP systolic 111–154; BP diastolic 60–88; PULSE 76–92; RESP 16–20; TEMP 35.9–36.7; O2SAT 95–100
[2024-03-06] MEDS: ALBUTEROL/IPRATROPIUM (Duoneb) RT SOL 3 ML NEBU INH ×2 (00:50→07:03)
[2024-03-06] MEDS: ceFAZolin/D5W 2 GM IV 2 GM/100 ML BAG IV (06:10)
[2024-03-06 06:12] LABS: Basophils # (Auto) 0.1 Thou/mm3 (0.0-0.2); Basophils % (Auto) 1 % (0-2.5); Eosinophils # (Auto) 0.3 Thou/mm3 (0.0-0.5); Eosinophils % (Auto) 5 % (0-10); Hemoglobin 9.1 g/dL (12.0-16.0); Immature Granulocytes % (Auto) 0 % (0-0); Immature Granulocytes Auto 0.01 Thou/mm3 (0.00-0.00); Lymphocytes # (Auto) 2.2 Thou/mm3 (1.0-4.8); Lymphocytes % (Auto) 43 % (10-50); Mean Corpuscular HGB Conc 32.5 g/dl (31.0-37.0); Mean Corpuscular Hemoglobin 26.8 pg (25.0-35.0); Mean Corpuscular Volume 83 fL (80-100); Monocytes # (Auto) 0.4 Thou/mm3 (0.0-0.8); Monocytes % (Auto) 8 % (0-12); Neutrophils # (Auto) 2.2 Thou/mm3 (1.8-7.7); Neutrophils % (Auto) 43 % (37-80); Nucleated Red Blood Cell % 0 /100 WBC (0); Platelet Count 251 Thou/mm3 (140-440); RDW Standard Deviation 45.9 fL (36.4-46.3); Red Blood Count 3.39 Miln/mm3 (4.00-5.20); White Blood Count 5.1 Thou/mm3 (3.6-11.0)
[2024-03-06 07:05] LABS: Alanine Aminotransferase 7 U/L (10-49); Albumin, Serum 3.3 gm/dL (3.5-5.0); Albumin/Globulin Ratio 1.2 (1.2-2.2); Alkaline Phosphatase 68 U/L (46-116); Anion Gap 8 (7-16); Aspartate Amino Transferase 12 U/L (0-34); BUN/Creatinine Ratio 13 Ratio (12-20); Bilirubin,Total 0.2 mg/dL (0.3-1.2); Blood Urea Nitrogen 8 mg/dL (9-23); Calcium 8.7 mg/dL (8.3-10.6); Calcium (Corrected) 9.3 mg/dL (8.5-10.1); Carbon Dioxide 28.3 mMol/L (20.0-31.0); Chloride 105 mMol/L (98-107); Creatinine (Component) 0.6 mg/dL (0.6-1.3); Estimated Creatinine Clearance 158.4 mL/min (>60); Globulin 2.7 gm/dL (2.3-3.5); Glucose 88 mg/dL (74-106); Osmolality,Calculated 278 (275-295); Phosphorous 3.8 mg/dL (2.4-5.1); Potassium 3.8 mMol/L (3.4-5.1); Sodium 141 mMol/L (136-145); eGFR > 60 See Note
[2024-03-06] MEDS: FERROUS SULF 325 MG TABLET PO (09:53)
[2024-03-06] MEDS: oxyCODONE/APAP 5/325 TABLET 1 TAB PO (09:53)
[2024-03-06] MEDS: LOSARTAN POTASSIUM 25 MG TABLET 50 MG PO (09:53)
[2024-03-06] MEDS: VANCOMYCIN/NS 1 GM IVPB 200 ML IV (09:53)
--- NOTE | 2024-03-06 11:14 | PC.NURSE ---
Orders in at [phone] pending rounding from team
--- NOTE | 2024-03-06 16:32 | ESDS_ITS ---
<Statement entered by Lala Medina MD - 03/06/24 18:40> I discussed with and supervised my co-resident involved in the care of this patient. I agree with the assessment and plan as documented above. Lala Medina,PGY-3 Disclaimer: Despite multiple revisions, due to the dictation software being used, the document below may not be free of grammatical errors including phonetic/typographic errors. However, this does not deter from our commitment to providing health care in the patient's best interest in mind. Planned Discharge Date 03/06/24 DS: Providers Provider Date of admission: 03/03/24 15:03 Primary care physician: Wander Vyas MD Admitting Provider: Gabe Camacho MD Attending Provider on Admission: Luis Alberto Rodriguez MD Consults: 03/03/24 17:30 [facility] Referral - Knowledge Deficit Routine Comment: Positive screening for knowledge deficit needs. Attending Provider on DC: Luis Alberto Rodriguez MD Discharging Provider: Luis Alberto Rodriguez MD DS: Diagnosis Problem List Completed Was Problem List Reviewed/Reconciled?: Yes Hospital Course Hospital Course Hospital course: This is a 48-year-old female PMHx of HTN, HLD, obesity, METH use, admitted for bilateral lower extremity cellulitis after failing outpatient CLINDAMYCIN. In the hospital she was started on IV cefazolin and vancomycin. Venous doppler was negative for DVT .Blood cultures have been negative. Echocardiogram was done to rule out CHF causes of lower extremity swelling leading to cellulitis. Echo showed EF 60-65%, no systolic or diastolic dysfunctions. Symptoms including cellulitis have improved significantly since admission.Today her vitals were stable ,no fever since admission. She will continue on oral ANTIBIOTICS. In addition, patient admitted to not recurrent of chest pain and pressure lasting about 30 minutes. EKG and trops negative. PATIENT INSTRUCTIONS: Follow-up with Primary Care Physician within 1 week of discharge. Recommended weight loss therapy to reduce chance of recurrent cellulitis. Return to Emergency Room if symptoms persist, worsen, or new symptoms develop. Continue taking home medications as prescribed by your doctor. Continue taking (NEW) medications as prescribed below: ? CEPHALEXIN 500 mg 4 times daily (NEW) ? DOXYCYCLINE 100 mg twice daily (NEW) Continue all other medications as prescribed by your doctor. ADMISSION DIAGNOSES: Bilateral lower extremity cellulitis- improved Morbid obesity Hx of gastric sleeve bypass Chest pain, nonspecified HTN HLD Active METH use Patient case was discussed with attending, Luis Alberto Rodriguez MD and senior residents Dr. Medina and Dr. Titus. Jaye Messina DO PGYI Time Spent with Patient Time attestation: Total time spent providing and/or coordinating discharge services: Greater than 35 minutes. Exam Vital Signs Temp Pulse Resp BP Pulse Ox O2 Del Method 98.0 F 76 18 112/64 99 Room Air 03/06/24 12:03/06/24 12:03/06/24 12:03/06/24 12:03/06/24 12:03/06/24 12:00 Narrative Exam GENERAL * Normal-appearing middle-aged woman, obese, no apparent distress HEENT * NCAT.?KASSI. Oral mucosa is moist. Patent Nares NECK * Supple, nontender, no thyromegaly, no meningismus, no JVD, no step offs CHEST * RRR, no m/g/r * CTAB, no w/r/r. Symmetrical chest rise. No intercostal subcostal retraction * Atraumatic, nontender, no crepitus, symmetrical expansion. ABDOMEN * Soft, flat, nontender. No guarding/rebound tenderness/masses. * Bowel sounds presents EXTREMITIES * Significantly improved bilateral lower extremity with erythema and tenderness over anterior distal artis. * No edema/cyanosis.? SKIN * Warm and dry, no jaundice/rashes. NEUROMUSCULAR * No lumbar or midline, no CVA, no paraspinal muscle spasm or tenderness. * Moves all 4 extremities well, with full ROM and good CSM. * CONNELL x4, CN II-XII grossly intact. * No focal neurologic deficits. PSYCHIATRY * Normal mood and affect, cooperative, no SI or HI or hallucinations. Discharge Plan Plan Patient Disposition: HOME (Self Care) Disposition Comment: Stable for admit Care Plan Goals: Follow-up with Primary Care Physician within 1 week of discharge. Recommended weight loss therapy to reduce chance of recurrent cellulitis. Return to Emergency Room if symptoms persist, worsen, or new symptoms develop. Continue taking home medications as prescribed by your doctor. Continue taking (NEW) medications as prescribed below: ? CEPHALEXIN 500 mg 4 times daily (NEW) ? DOXYCYCLINE 100 mg twice daily (NEW) Prescriptions/Referrals Prescriptions/Med Rec: New cephalexin 500 mg capsule 500 mg PO QID 7 Days Qty: 28 0RF doxycycline hyclate 100 mg capsule 100 mg PO BID 7 Days Qty: 14 0RF Continued telmisartan 80 mg Tablet 40 mg PO QDAY omeprazole 20 mg Capsule,Delayed Release(Dr/Ec) 20 mg PO BID vitamin [id number] acid 0.5-1 mg Tablet 1 tab PO QDAY Ozempic 0.25 mg or 0.5 mg (2 mg/3 mL) Pen Injector 0.5 mg SUBCUT QWEEK buspirone 5 mg Tablet 7.5 mg PO BID docusate sodium [Colace] 100 mg capsule 100 mg PO BID Qty: 20 0RF ibuprofen 600 mg tablet 600 mg PO Q8H PRN (Reason: pain (scale score 4-6)) Qty: 15 0RF hydrocodone-acetaminophen 5-325 mg tablet 1 tab PO Q8H MDD 3 PRN (Reason: pain (scale score 7-10)) Qty: 10 0RF Referrals: Wander Vyas MD [Primary Care Provider] - Patient/Caregiver Discharge Instructions Other Discharge Activity Instructions:: Follow-up with PCP within 1 week of discharge. Recommended weight loss therapy to reduce chance of recurrent cellulitis. Return to Emergency Room if symptoms persist, worsen, or new symptoms develop. Continue taking home medications as prescribed by your doctor. Continue taking (NEW) medications as prescribed below: ? CEPHALEXIN ? DOXYCYCLINE Education Materials: Discharge Instructions for Cellulitis Print Language: Yakut Stand Alone Forms: Maria D Award Info., Patient Portal Info Letter Discharge Order Discharge Orders: Discharge (Routine); Ordered 03/06/24 Ordered By: Jaye Messina Quality Discharge Quality Measures VTE prophylaxis Attestestation Attestation I have examined the patient, reviewed labs and imaging findings, discussed the case with the resident(s), and reviewed entered orders. I agree with the plan of care as outlined in this note. Dr. Rodriguez
== END 2024-03-06 12:26 | disposition home or self-care (01) | DRG 383 ==
LOC: SERX 12:55 → SERHOLD 15:16 → S3NX 16:51
PROVIDERS: Nurse Practitioner Family; Admitting Provider Student in an Organized Health Care Education/Training Program; Emergency Provider Emergency Medicine; PCP Family Medicine; Visit Provider Student in an Organized Health Care Education/Training Program
DX: L03.115 Cellulitis of right lower limb (principal); L03.116 Cellulitis of left lower limb; E66.01 Morbid (severe) obesity due to excess calories; R07.89 Other chest pain; I10 Essential (primary) hypertension; E78.5 Hyperlipidemia, unspecified; Z68.42 Body mass index [BMI] 45.0-49.9, adult; K76.0 Fatty (change of) liver, not elsewhere classified; F15.10 Other stimulant abuse, uncomplicated; Z98.84 Bariatric surgery status
CPT/HCPCS: 36415; 80053; 80202; 83735; 84100; 84484; 85025; 85379; 85610; 85730; 87040; 87081; 93005; 93306; 93971; 94640; 96365; 99285; A9270; J0689; J1643; J3370; J3371; J7050; Q0162